=== PATIENT | male | born 1980 | race Caucasian/White ===

== ENCOUNTER 2021-05-14 07:20 | Emergency (ER) | payer BC ==
[2021-05-14] MEDS ORDERED: Ketorolac 15 MG/ML SDV IVPUSH ONE (08:08)
[2021-05-14] MEDS ORDERED: Sodium Chloride 0.9% 10 ML Syringe FLUSH PRN (08:08)
[2021-05-14] MEDS ORDERED: Lactated Ringers 1,000 ML IV ONE (08:08)
[2021-05-14] MEDS ORDERED: Ondansetron 4 MG/2 ML SDV IVPUSH ONE (08:10)
--- NOTE | 2021-05-14 08:16 | EDM.PDOC ---
ED HPI GENERAL MEDICAL PROBLEM - General Chief Complaint: General Stated Complaint: COVID + Time Seen by Provider: 05/14/21 07:46 - History of Present Illness INITIAL COMMENTS - FREE TEXT/NARRATIVE: Patient arrived to ED by private vehicle Onset of symptoms was 05/09/2021 Symptoms began with body aches and malaise, with alteration in taste and smell Subsequently developed diarrhea, nausea, fever, headache, mild cough, shortness of breath Currently endorses dizziness with ambulation Has been taking Aleve without significant improvement in body aches Has persistence of fever and diarrhea currently States "the whole house" has been sick He did not receive COVID-19 vaccination Generalized Pain Score (Numeric/FACES): 9 - Related Data Allergies Allergy/AdvReac Type Severity Reaction Status Date / Time No Known Allergies Allergy Verified 05/14/21 07:38 Home Meds: Home Meds Losartan/Hydrochlorothiazide [Losartan-HCTZ 100-12.5 MG] 1 each PO DAILY 05/14/21 [History] Past Medical History Cardiovascular History: Reports: Hypertension Endocrine/Metabolic History: Reports: Obesity/BMI 30+ - Infectious Disease History Infectious Disease History: Reports: Novel Coronavirus - Past Surgical History Neurological Surgical History: Reports: Lumbar Spine, Spinal Fusion Musculoskeletal Surgical History: Reports: Other (See Below) Other Musculoskeletal Surgeries/Procedures:: Ankle Surgery Dermatological Surgical History: Reports: Other (See Below) Social & Family History - Tobacco Use Tobacco Use Status *Q: Never Tobacco User - Caffeine Use Caffeine Use: Reports: None - Recreational Drug Use Recreational Drug Use: No ED ROS GENERAL - Review of Systems Review Of Systems: See Below Free Text/Narrative/Comment: Constitutional - fever; anorexia; malaise/fatigue Eyes - no eye pain; no visual disturbance ENT - no rhinorrhea; no congestion; no epistaxis; sore throat Cardiovascular - no chest pain; dizziness Respiratory - shortness of breath; cough Gastrointestinal - no abdominal pain; nausea; no vomiting; diarrhea Genitourinary - no dysuria Musculoskeletal - no extremity injury; myalgias Neurological - headache; no speech disturbance ED EXAM, GENERAL - Physical Exam Exam: See Below Free Text/Narrative:: Constitutional - awake; alert; mild, general distress Head - no facial swelling or weakness Eyes - extra ocular motion intact; conjunctiva normal; pupils equal and reactive to light ENT - no nasal deformity; no epistaxis; normal phonation; mucus membranes moist; Neck - no swelling Respiratory - normal respiratory effort; few bibasilar crackles, more prominent on right; no wheezing; no stridor Cardiovascular - regular rhythm; normal rate; S1; S2; grade 1/6 systolic murmur GI/Abdomen - normal bowel sounds; soft; no tenderness; no rebound; no guarding; no mass Musculoskeletal - grossly normal strength and motion; no swelling or deformity Skin - warm; dry Neurologic - normal speech; no weakness Psychiatric - normal mood and affect; memory and attention normal Course - Vital Signs Text/Narrative:: . Considered etiologies included: COVID-19, dehydration, metabolic derangement, pneumonia Symptoms and examination were discussed Investigations were initiated Empiric treatment was provided with IV fluid infusion, ketorolac, and ondansetron At reevaluation there was mild improvement in symptom severity Results were discussed, with findings for pneumonia Consideration for monoclonal antibody infusion was discussed with patient Patient was provided the medication "Fact Sheet for Patients and Parents/Caregivers" for review This included statement that therapy was approved under emergent use authorization, with no certainty of benefit, and potential risks/adverse reac tions Patient voiced understanding with no questions or concerns, and agreed to proceed with infusion Infusion was completed without complications or adverse effect Patient was given benzonatate and albuterol inhaler via spacer for cough complaint Symptomatic treatment and isolation guidelines were reviewed Patient was felt to be stable for outpatient follow-up Return precautions were provided Last Recorded V/S: Last Vital Signs Temp 36.4 C 05/14/21 07:34 Pulse 87 05/14/21 12:30 Resp 18 05/14/21 12:30 BP 134/93 H 05/14/21 12:30 Pulse Ox 94 L 05/14/21 12:30 - Orders/Labs/Meds Labs: Laboratory Tests 05/14/21 05/14/21 05/14/21 Range/Units 07:38 07:38 08:28 WBC 6.73 (4.23-9.07) K/mm3 RBC 5.65 (4.63-6.08) M/mm3 Hgb 14.9 (13.7-17.5) gm/dl Hct 46.0 (40.1-51.0) % MCV 81.4 (79.0-92.2) fl MCH 26.4 (25.7-32.2) pg MCHC 32.4 (32.2-35.5) g/dl RDW Std Deviation 40.6 (35.1-43.9) fL Plt Count 203 (163-337) K/mm3 MPV 10.2 (9.4-12.3) fl Neut % (Auto) 75.4 H (34.0-67.9) % Lymph % (Auto) 18.7 L (21.8-53.1) % [place] % (Auto) 5.2 L (5.3-12.2) % Eos % (Auto) 0.3 L (0.8-7.0) Baso % (Auto) 0.1 (0.1-1.2) % Neut # (Auto) 5.07 (1.78-5.38) K/mm3 Lymph # (Auto) 1.26 L (1.32-3.57) K/mm3 [place] # (Auto) 0.35 (0.30-0.82) K/mm3 Eos # (Auto) 0.02 L (0.04-0.54) K/mm3 Baso # (Auto) 0.01 (0.01-0.08) K/mm3 Sodium 141 (136-145) mEq/L Potassium 4.0 (3.5-5.1) mEq/L Chloride 102 (98-107) mEq/L Carbon Dioxide 29 (21-32) mEq/L Anion Gap 14.0 (5-15) BUN 12 (7-18) mg/dL Creatinine 0.9 (0.7-1.3) mg/dL Est Cr Clr Drug Dosing 114.91 mL/min Estimated GFR (MDRD) > 60 (>60) mL/min BUN/Creatinine Ratio 13.3 L (14-18) Glucose 113 H (70-99) mg/dL Calcium 8.4 L (8.5-10.1) mg/dL Total Bilirubin 0.3 (0.2-1.0) mg/dL AST 39 H (15-37) U/L ALT 46 (16-63) U/L Alkaline Phosphatase 61 (46-116) U/L Total Protein 7.6 (6.4-8.2) g/dl Albumin 3.8 (3.4-5.0) g/dl Globulin 3.8 gm/dL Albumin/Globulin Ratio 1.0 (1-2) Urine Color Dark yellow (Yellow) Urine Appearance Clear (Clear) Urine pH 5.5 (5.0-8.0) Ur Specific [place] > or = 1.030 (1.005-1.030) Urine Protein 2+ H (Negative) Urine Glucose (UA) Negative (Negative) Urine Ketones 3+ H (Negative) Urine Occult Blood Trace-intact H (Negative) Urine Nitrite Negative (Negative) Urine Bilirubin 2+ H (Negative) Urine Urobilinogen 0.2 (0.2-1.0) Ur Leukocyte Esterase Negative (Negative) U Hyaline Cast (Auto) 0-5 (0-5) /lpf Urine RBC 0-5 (0-5) /hpf Urine WBC 0-5 (0-5) /hpf Ur Epithelial Cells Not seen (0-5) /hpf Urine Bacteria Many H (FEW) /hpf Urine Mucus Many H (FEW) /hpf Meds: Medications Discontinued Medications Generic Name Dose Route Start Last Admin Trade Name Freq PRN Reason Stop Dose Admin Albuterol 0 gm 05/14/21 12:44 05/14/21 13:03 Albuterol 6.7 Gm Inhaler INH 05/14/21 12:45 2 inhalation ONETIME ONE Administration Benzonatate 200 mg 05/14/21 12:44 Benzonatate 100 Mg Cap PO 05/14/21 12:45 ONETIME ONE Diphenhydramine HCl 50 mg 05/14/21 11:33 Diphenhydramine 50 Mg/Ml Sdv IVPUSH ONETIME PRN hypersensitivity reaction Epinephrine HCl 0.3 mg 05/14/21 11:33 Epinephrine 1 Mg/Ml Sdv IM ONETIME PRN hypersensitivity reaction Famotidine 20 mg 05/14/21 11:33 Famotidine 20 Mg/2 Ml Sdv IVPUSH ONETIME PRN hypersensitivity reaction Lactated Ringer's 1,000 mls @ 999 mls/hr 05/14/21 08:08 05/14/21 08:21 Ringers, Lactated IV 05/14/21 09:08 999 mls/hr .BOLUS ONE Administration CASIRIVIMAB/IMDEVIMAB 10 ml/ 110 mls @ 220 mls/hr 05/14/21 12:00 05/14/21 11:59 Sodium Chloride IV 05/14/21 12:29 220 mls/hr ONETIME ONE Administration Ketorolac Tromethamine 15 mg 05/14/21 08:08 05/14/21 08:22 Ketorolac 15 Mg/Ml Sdv IVPUSH 05/14/21 08:09 15 mg ONETIME ONE Administration Methylprednisolone Sodium Succinate 125 mg 05/14/21 11:33 Methylprednisolone Sodium Succinate 125 Mg/2 Ml Sdv IVPUSH ONETIME PRN hypersensitivity reaction Ondansetron HCl 4 mg 05/14/21 08:10 05/14/21 08:21 Ondansetron 4 Mg/2 Ml Sdv IVPUSH 05/14/21 08:11 4 mg ONETIME ONE Administration Sodium Chloride 10 ml 05/14/21 08:08 05/14/21 08:21 Sodium Chloride 0.9% 10 Ml Syringe FLUSH 10 ml ASDIRECTED PRN Administration Keep Vein Open Sodium Chloride 30 ml 05/14/21 11:45 Sodium Chloride 0.9% 10 Ml Syringe FLUSH ASDIRECTED BOOGIE - Radiology Interpretation Free Text/Narrative:: XR chest, portable, radiology interpretation: 1. Findings are felt compatible with Covid pneumonia ... Departure - Departure Time of Disposition: 13:34 Disposition: Home, Self-Care 01 Clinical Impression: Pneumonia due to COVID-19 virus - Discharge Information *PRESCRIPTION DRUG MONITORING PROGRAM REVIEWED*: Not Applicable *COPY OF PRESCRIPTION DRUG MONITORING REPORT IN PATIENT MELLY: Not Applicable Instructions: COVID-19: What to Do if You Are Sick - CDC (09/12/2020) Referrals: PCP,None [Primary Care Provider] - Forms: ED Department Discharge Additional Instructions: Continue self-isolation for COVID-19 in accordance with CDC guidelines -No fever for 24 hours -Symptoms are improving -At least 10 days have passed since symptoms began COVID-19 vaccination is recommended after recovery is complete Return if condition worsens May resume general activity and regular diet as tolerated Continue usual medications May use IBUPROFEN 600 mg every 6 hours as needed for pain/or fever May use ACETAMINOPHEN 650 mg every 4 hours as needed for pain or fever May use LOPERAMIDE (Imodium) as needed for diarrhea per product instructions Follow-up with primary care provider is recommended in 1 to 2 weeks
--- NOTE | 2021-05-14 08:53 | CR ---
Chest: Portable view of the chest was obtained. Comparison: Prior chest x-ray of 10/06/13. Patchy areas of increased density are seen within both sides of the chest, worse within the lower lobes. Heart size and mediastinum are normal. Bony structures are within normal limits for the patient's age. Impression: 1. Findings are felt compatible with Covid pneumonia as described above. Diagnostic code #3
[2021-05-14] MEDS ORDERED: Famotidine 20 MG/2 ML SDV IVPUSH PRN (11:33)
[2021-05-14] MEDS ORDERED: methylPREDNISolone Sodium Succinate 125 MG/2 ML SDV IVPUSH PRN (11:33)
[2021-05-14] MEDS ORDERED: diphenhydrAMINE 50 MG/ML SDV IVPUSH PRN (11:33)
[2021-05-14] MEDS ORDERED: EPINEPHrine 1 MG/ML SDV IM PRN (11:33)
[2021-05-14] MEDS ORDERED: Sodium Chloride 0.9% 10 ML Syringe FLUSH SCH (11:45)
[2021-05-14] MEDS ORDERED: Albuterol 6.7 GM Inhaler INH ONE (12:44)
[2021-05-14] MEDS ORDERED: Benzonatate 100 MG Cap PO ONE (12:44)
== END 2021-05-14 14:35 | disposition home or self-care (01) ==
LOC: JD.ED 07:20
DX: U07.1 COVID-19 (principal); J12.82 Pneumonia due to coronavirus disease 2019; I10 Essential (primary) hypertension; E66.9 Obesity, unspecified; Z68.35 Body mass index [BMI] 35.0-35.9, adult; Z86.16 Personal history of COVID-19
CPT/HCPCS: 36415; 71045; 80053; 81001; 85025; 96374; 96375; 99284; A9270; J1885; J2405; J7120; M0243; Q0243

== ENCOUNTER 2022-09-21 14:55 | Emergency (ER) | payer BC | END 2022-09-21 17:30 | disposition home or self-care (01) | LOC: JD.ED 14:55 | DX: R42 Dizziness and giddiness (principal); I10 Essential (primary) hypertension; E66.9 Obesity, unspecified; Z86.16 Personal history of COVID-19; Z79.899 Other long term (current) drug therapy; Z68.39 Body mass index [BMI] 39.0-39.9, adult | CPT/HCPCS: 36415; 71045; 71045-26; 80053; 83735; 83880; 84443; 84484; 85025; 85610; 85730; 93005; 99284 ==